=== PATIENT | male | born 1965 | race Caucasian/White ===

== ENCOUNTER 2023-11-13 03:22 | Emergency (ER) | payer OTHER, SELFPAY ==
[2023-11-13 03:26] VITALS: BP 205/104; PULSE 94; RESP 18; TEMP 37; O2SAT 96; BMI 32.1
--- NOTE | 2023-11-13 03:29 | ED_ITS ---
HPI - SOB/Dyspnea 2 General: Chief Complaint: Shortness of Breath/Dyspnea Stated Complaint: SOB Time Seen by Provider: 11/13/23 03:29 History of Present Illness: HPI Narrative: 58-year-old male presents emergency depa rtment stating that he feels like he is having episodes of shortness of breath. He states he was tested for sleep apnea approximately 20 years ago and was told he did not meet the criteria at that time. He states he would intermittently have periods when he goes to sleep feels like he is getting choked then wakes up coughing. He states he feels like he has something intermittently stuck in his throat. He states he does have periods where his voice becomes very hoarse. He states he has not seen a physician in more than 20 years. He denies chest pain. He states that his cough is not necessarily related to shortness of breath but states he feels like his airway is intermittently narrowed. He states he has not had an EGD to evaluate for acid reflux although he had acid reflux in the past. He does endorse recent sick contacts from friends that were visiting from [place]. Associated symptoms: Deny chest pain or palpitations Review of Systems 2 General: Reports: 10 or more systems reviewed and unremarkable except in HPI and below Card: Denies: chest pain, palpitations or irregular heart rhythm Resp: Reports: dyspnea and non-productive cough Physical Exam 2 Narrative: EXAM NARRATIVE: Constitutional: the patient appears well nourished and of normal development. Vital signs as documented. No acute distress at present. Alert and oriented-to person, place, time and situation. Head, eyes, ears, nose, mouth, throat: Normocephalic, atraumatic. Pupils-equal, round, reactive to light. No scleral icterus. Normal-appearing external ears. Normal appearing nasal turbinates, no drainage. No obvious oral lesions, posterior oropharynx without erythema or exudates. Neck: Supple, trachea is midline, no lymphadenopathy, no jugular venous distension, thyromegaly, or carotid bruits. Carotid upstrokes are brisk bilaterally. Lungs: clear to auscultation to all lung way[place]. Symmetrical rise and fall of chest, no obvious signs of increased work of breathing at present. Cardiac: Regular rate and rhythm, positive S1, S2. No murmurs, rubs or gallops that I can appreciate Abdomen: Soft, non-tender to palpation, normal active bowel sounds to all quadrants. No palpable masses, no organomegaly and abdominal bruits. Extremities: 2+ pulses in the upper extremities that are equal bilaterally, 2+ pulses in the lower extremities that are equal bilaterally. Non-edematous. Moves all extremities well, sensation to all extremities are noted. Skin: Warm, dry, intact. Course 2 Vital Signs: Vital signs: Vital Signs Temperature 98.6 F 11/13/23 03:26 Pulse Rate 88 11/13/23 05:44 Respiratory Rate 12 11/13/23 05:44 Blood Pressure 189/97 11/13/23 05:44 Pulse Oximetry 94 11/13/23 05:44 Oxygen Delivery Me thod Room Air 11/13/23 04:49 MDM - SOB/Dyspnea Medical Decision Making Physical exam completed and documented, I will provide the patient Solu-Medrol and also hydralazine IV for his uncontrolled hypertension. Rapid strep screen and COVID screen was negative. CBC and CMP were essentially unremarkable chest x-ray was negative for acute findings. Twelve-lead EKG was obtained demonstrated normal sinus rhythm. Lab Data I reviewed the patient's lab results. 11/13/23 03:40 11/13/23 03:40 Labs/Radiology: Laboratory Results WBC 9.82 10^3/uL (3.29-11.43) 11/13/23 03:40 RBC 5.55 10^6/uL (3.85-5.65) 11/13/23 03:40 Hgb 16.20 g/dL (11.27-16.99) 11/13/23 03:40 Hct 48.8 % (37-53) 11/13/23 03:40 MCV 87.9 fl (82-101) 11/13/23 03:40 MCH 29.2 pg (27-33) 11/13/23 03:40 MCHC 33.2 g/dL (30-55) 11/13/23 03:40 RDW 14.8 % (12.1-15.1) 11/13/23 03:40 Plt Count 322 10^3/cmm (157-399) 11/13/23 03:40 MPV 10.4 fL (7.4-10.4) 11/13/23 03:40 Neut % (Auto) 55.3 % 11/13/23 03:40 Lymph % (Auto) 32.6 % 11/13/23 03:40 [place] % (Auto) 8.1 % 11/13/23 03:40 Eos % (Auto) 3.3 % 11/13/23 03:40 Baso % (Auto) 0.5 % 11/13/23 03:40 Neut # (Auto) 5.43 10^3/uL (1.8-7.7) 11/13/23 03:40 Lymph # (Auto) 3.2 10^3/uL (0.8-4.8) 11/13/23 03:40 [place] # (Auto) 0.8 10^3/uL (0.2-0.9) 11/13/23 03:40 Eos # (Auto) 0.3 10^3/uL (0.0-0.8) 11/13/23 03:40 Baso # (Auto) 0.1 10^3/uL (0.0-0.1) 11/13/23 03:40 Nucleated RBC % (auto) 0 % 11/13/23 03:40 Nucleated RBCs # 0.0 /100WBC 11/13/23 03:40 PT 12.20 SECONDS (12.1-14.9) 11/13/23 03:40 INR 0.88 (0.8-1.2) 11/13/23 03:40 Sodium 141 mmol/L (136-145) 11/13/23 03:40 Potassium 4.0 mmol/L (3.5-5.1) 11/13/23 03:40 Chloride 104 mmol/L (98-107) 11/13/23 03:40 Carbon Dioxide 25 mmol/L (22-29) 11/13/23 03:40 Anion Gap 16.0 (5-19) 11/13/23 03:40 BUN 14 mg/dL (8-23) 11/13/23 03:40 Creatinine 0.9 mg/dL (0.7-1.2) 11/13/23 03:40 GFR Calculation 86.1 mL/min (90-130) L 11/13/23 03:40 Glucose 121 mg/dL (65-115) H 11/13/23 03:40 Calculated Osmolality 294 mOsm/kg (285-295) 11/13/23 03:40 Calcium 9.5 mg/dL (8.5-10.5) 11/13/23 03:40 Total Bilirubin 0.6 mg/dL (0.15-1.2) 11/13/23 03:40 AST 19 U/L (0-40) 11/13/23 03:40 ALT 26 U/L (0-41) 11/13/23 03:40 Alkaline Phosphatase 79 U/L (40-130) 11/13/23 03:40 Troponin T Baseline 12 ng/L (0-15) 11/13/23 03:40 Troponin T 120 Minute 8.14 ng/L (0-15) 11/13/23 05:07 Delta Troponin T -3.86 ABS# (0-10) L 11/13/23 05:07 NT-Pro-B Natriuret Pep < 36 pg/mL (0-125) 11/13/23 03:40 Total Protein 7.7 g/dL (6.6-8.7) 11/13/23 03:40 Albumin 4.6 g/dL (3.5-5.2) 11/13/23 03:40 Globulin 3.1 g/dL (1.3-4.6) 11/13/23 03:40 SARS-CoV-2 Ag (Rapid) negative (Negative) 11/13/23 04:00 Group A Strep Rapid Negative (Negative) 11/13/23 04:00 All radiology interpretation(s) finalized by discharge EKG Data EKG 1: Interpretation: Twelve-lead EKG obtained at 334 and reviewed at 336 demonstrates sinus rhythm, ventricular rate 82, MT interval 177, QRS duration 99, QT [address] elevation or depression at present to demonstrate acute ischemia or infarction. Discharge Plan Discharge Patient Disposition: Home Clinical Impression: GERD with apnea, Upper respiratory symptom Condition: Stable Prescriptions: New hydrochlorothiazide 25 mg tablet 12.5 mg PO DAILY Qty: 30 0RF prednisone 20 mg tablet 40 mg PO DAILY 5 Days Qty: 10 0RF pantoprazole 20 mg tablet,delayed release (DR/EC) 20 mg PO DAILY 28 Days Qty: 30 0RF fluticasone propionate 50 mcg/actuation spray,suspension 1 spray intranasal DAILY PRN (Reason: nasal congestion) Qty: 16 0RF Rx Instructions: administer into each nostril Discharge Orders: Discharge ED (Routine); Ordered 11/13/23 Ordered By: Cameron Rossi Referrals: Ryne Blank DO [Physician] - Fransisco Zimmer MD [Physician] - Malik Solorzano MD [Primary Care Provider] - Discharge Diet: Usual diet Discharge Activity: Resume usual activity Patient Instructions: Opioid Safety, Pain Management Activity Restrictions/Additional Instructions: Activity Restrictions/Additional Instructions: Thank you for choosing [facility] for your healthcare needs today. Please realize that you were seen in the Emergency Department and that we are providing you with an emergency medical screening exam and this may not be a complete and all inclusive of all the testing and or medical work-up that you may need to determine your ailment or severity of your illness. It is very important that you follow-up as instructed with your Primary care provider or Specialist for additional evaluation and to discuss your medical treatment plan. I have provided to you the contact information for Dr. Blank to discuss the need to obtain an upper gastrointestinal scope to evaluate you for GERD and silent acid reflux. I have also provided you with Dr. Zimmer's contact information to discuss obtaining a repeat sleep apnea study. You may call their office to discuss further treatment and appointment times. Coding Level of Care Code ED Dry Cleaning Counter Clerk for Breanna Bonilla
--- NOTE | 2023-11-13 03:30 | XRR_ITS ---
PROCEDURE INFORMATION: Exam: XR Chest Exam date and time: 11/13/2023 4:05 AM Age: 58 years old Clinical indication: Dyspnea TECHNIQUE: Imaging protocol: Radiologic exam of the chest. Views: 1 view. COMPARISON: No relevant prior studies available. FINDINGS: Lungs: Unremarkable. No consolidation. Pleural spaces: Unremarkable. No pleural effusion. No pneumothorax. Heart/Mediastinum: Unremarkable. No cardiomegaly. Bones/joints: Unremarkable. XR/XR chest 1V portable [id number] IMPRESSION: No acute findings.
--- NOTE | 2023-11-13 03:34 | ECG_ITS ---
[facility] Test Date: 2023-11-13 Pat Name: Gurjit Dumont Department: Room: Gender: Male Clerical Adjudicator: : 1965 Requested By: Cameron Rossi Order Number: [id number] Lynne MD: Jose Ramon Collins M.D. Measurements Intervals [place] Rate: 82 P: 5 ND: 177 QRS: 74 QRSD: 99 T: 32 QT: 374 QTc: 438 Interpretive Statements SINUS RHYTHM No previous ECG available for comparison Electronically Signed On 11-13-2023 12:28:53 CDT by Jose Ramon Collins M.D. [id number]
[2023-11-13 03:46] LABS: Basophils # 0.1 10^3/uL (0.0-0.1); Basophils % 0.5 %; Eosinophils # 0.3 10^3/uL (0.0-0.8); Eosinophils % 3.3 %; Hematocrit 48.8 % (37-53); Lymphocytes # 3.2 10^3/uL (0.8-4.8); Lymphocytes % 32.6 %; Mean Corpuscular HGB Conc 33.2 g/dL (30-55); Mean Corpuscular Hemoglobin 29.2 pg (27-33); Mean Corpuscular Volume 87.9 fl (82-101); Mean Platelet Volume 10.4 fL (7.4-10.4); Monocytes # 0.8 10^3/uL (0.2-0.9); Monocytes % 8.1 %; Neutrophils # 5.43 10^3/uL (1.8-7.7); Neutrophils % 55.3 %; Nucleated Red Blood Cells % 0 %; Platelet Count 322 10^3/cmm (157-399); Red Blood Count 5.55 10^6/uL (3.85-5.65); Red Cell Distribution Width 14.8 % (12.1-15.1); White Blood Count 9.82 10^3/uL (3.29-11.43)
[2023-11-13 03:55] LABS: INR 0.88 (0.8-1.2)
[2023-11-13] MEDS: hyDRALAzine 20 mg/mL INJ 1 mL 10 MG IVP ×2 (03:58→05:50)
[2023-11-13 04:02] LABS: Troponin(5th) Baseline 12 ng/L (0-15)
[2023-11-13 04:11] LABS: Rapid Strep A Test Negative (Negative)
[2023-11-13 04:18] LABS: Alanine Aminotransferase 26 U/L (0-41); Albumin Level 4.6 g/dL (3.5-5.2); Alkaline Phosphatase 79 U/L (40-130); Aspartate Amino Transferase 19 U/L (0-40); Blood Urea Nitrogen 14 mg/dL (8-23); Calcium 9.5 mg/dL (8.5-10.5); Carbon Dioxide 25 mmol/L (22-29); Chloride 104 mmol/L (98-107); Creatinine Clr Calc Pharmacy 111.2405; Globulin 3.1 g/dL (1.3-4.6); Glomerular Filtration Rate 86.1 mL/min (90-130); Glucose 121 mg/dL (65-115); NT Pro B Type Natriuretic Pept < 36 pg/mL (0-125); Osmolality Calculated 294 mOsm/kg (285-295); Sodium 141 mmol/L (136-145); Total Bilirubin 0.6 mg/dL (0.15-1.2); Total Protein 7.7 g/dL (6.6-8.7)
[2023-11-13 04:20] LABS: SARS Covid-2 Antigen negative (Negative)
[2023-11-13 04:49] VITALS: BP 191/101; PULSE 87; O2SAT 97
[2023-11-13 05:03] VITALS: BP 212/118
[2023-11-13] MEDS: cloNIDine 0.1 mg Tablet 0.100000000000000006 MG PO (05:03)
[2023-11-13] MEDS: methylPREDNISolone sod succ 125 mg/2 mL INJ 60 MG IVP (05:04)
[2023-11-13 05:33] LABS: Troponin 5 2HR 8.14 ng/L (0-15); Troponin 5 2HR Delta -3.86 ABS# (0-10)
[2023-11-13 05:44] VITALS: BP 189/97; PULSE 88; RESP 12; O2SAT 94
[2023-11-13 06:00] VITALS: BP 172/84; PULSE 94; O2SAT 93
[2023-11-13 06:14] VITALS: BP 172/80; RESP 18; O2SAT 96
== END 2023-11-13 06:17 | disposition home or self-care (01) ==
PROVIDERS: Emergency Provider Internal Medicine; PCP Family Medicine
DX: K21.9 Gastro-esophageal reflux disease without esophagitis (principal); R06.81 Apnea, not elsewhere classified; Z11.52 Encounter for screening for COVID-19
CPT/HCPCS: 71045; 80053; 83880; 84484; 85025; 85610; 87081; 87426; 87880; 93005; 96374; 96375; 96376; 99285; J0360; J2919